=== PATIENT | male | born 1990 | race Caucasian/White ===

== ENCOUNTER 2016-06-11 13:35 | Inpatient (IN) | payer MEDICAID, OTHER ==
--- NOTE | 2016-06-11 13:42 | EDPHY ---
H & P - Medical/Surgical History Hx Asthma: No Hx Chronic Respiratory Disease: No Hx Diabetes: No Hx Cardiac Disease: No Hx Renal Disease: No Hx Cirrhosis: No Hx Alcoholism: No Hx HIV/AIDS: No Hx Splenectomy or Spleen Trauma: No Other PMH: schizophrenia - Social History Smoking Status: Former smoker Time Seen by Provider: 06/11/16 13:42 Constitutional: Initial Vital Signs Temperature (C) 37.6 C 06/11/16 13:45 Heart Rate 95 06/11/16 13:45 Respiratory Rate 20 06/11/16 13:45 Blood Pressure 140/88 H 06/11/16 13:45 O2 Sat (%) 91 L 06/11/16 13:45 O2 Delivery Mode Room Air Allergies/Adverse Reactions: No Known Allergies Allergy (Unverified 06/27/12 18:44) Home Medications: Medication Instructions Recorded ARIPiprazole [Abilify Maintena] 400 mg IM Q30D 06/12/16 QUEtiapine FUMARATE [Seroquel 100 100 mg PO HS 06/12/16 mg (*)] Medical Decision Making ED Course/Re-evaluation: CHIEF COMPLAINT: Psychiatric evaluation HISTORY OF PRESENT ILLNESS: 26-year-old gentleman who is accompanied by his parents. He is been having some psychiatric issues. He is paranoid. He has been having tangential thought patterns and speech. He is getting angry at things like the TV and TV programs. He is not making good sense. He apparently has been receiving his monthly psychiatric medicine. There is no evidence or drug alcohol abuse since he is monitored closely by his parents. REVIEW OF SYSTEMS: A 10 point review of systems was performed and is negative with the exception of the elements mentioned in the history of present illness. PHYSICAL EXAM: General Appearance: Alert, well hydrated, appropriate, and non-toxic appearing. Head: Atraumatic without scalp tenderness or obvious injury Eyes: Pupils equal, round, reactive to light and accommodation, EOMI, no trauma , no injection. Ears: Clear bilaterally, no perforation, normal landmarks Nose: Atraumatic, no rhinorrhea, clear. Throat: There is no erythema or exudates, no lesions, normal tonsils, mucus membranes moist. Neck: Supple, 2+ carotid upstroke, nontender, no lymphadenopathy. Respiratory: No retractions, no distress, no wheezes, and no accessory muscle use. Lungs are clear to auscultation bilaterally. Cardiovascular: Regular rate and rhythm, no murmurs, rubs, or gallops. Bilateral carotid, radial, dorsalis pedis, and posterior tibial pulses intact. Good capillary refill all extremities. Gastrointestinal: Abdomen is soft, nontender, non-distended, no masses, no rebound, no guarding, no peritoneal signs. Musculoskeletal: Normal active ROM of all extremities, atraumatic. Neurological: Alert, appropriate, and interactive. The patient has normal DTRs and non-focal cranial nerves, motor, sensory, and cerebellar exam. Skin: No rashes, good turgor, no nodules on palpation. Past medical history: Psychiatric disorders Past surgical history: Noncontributory Family history: Noncontributory Social history: Lives at home with his parents, unemployed, uses tobacco, denies drug or alcohol use DIFFERENTIAL DIAGNOSIS: The differential diagnosis for the patient's depression included but was not limited to functional and major depression, situational depression, medication side effect, drugs, and alcohol abuse. MEDICAL DECISION MAKING: Patient is in no acute distress and is hemodynamically stable. We are awaiting psychiatric team's evaluation. Patient has known history of psychiatric disorders and is here for evaluation. Patient is significantly more tangential and disorganized with than usual. His parents and the psychiatric team believe that this patient needs further evaluation and placement. He is cooperative although he had a long discussion about obtaining blood from him. The patient is concerned that we will take all of his blood and I assured him we would only take a couple of tests to any seems to be compliant with that now. 1757: EPS evaluated patient and determined he will need admission. They will begin searching for placement. 2153: Patient care signed out to Dr. Alanis at shift change pending placement. ( Jose Wiggins) 2200 care assumed by me from Dr. Wiggins pending placement. 0700 patient signed out to Dr. White pending placement. No issues with this patient during my care overnight. (John Alanis) I assumed care of this patient at [address] Alanis. Patient required a dose of Ativan during the morning for agitation. I also pharmacy to do med reconciliation so the patient could be started on his regular antipsychotic meds. I was informed at 11 o'clock that the patient has been accepted Dr. Frey's service on . Transfer paperwork was signed. (Ritika White) - Data Points Laboratory Results: Laboratory Results 06/11/16 13:55 06/11/16 13:55 Medications Given: Discontinued Medications Benztropine Mesylate (Cogentin) 1 mg PO EDNOW ONE Stop: 06/11/16 18:32 Last Admin: 06/11/16 20:18 Dose: 1 mg Lorazepam (Ativan) 1 mg PO EDNOW ONE Stop: 06/12/16 07:36 Last Admin: 06/12/16 07:44 Dose: 1 mg Lorazepam (Ativan) 1 mg PO EDNOW ONE Stop: 06/12/16 12:19 Last Admin: 06/12/16 12:25 Dose: 1 mg Olanzapine (Olanzapine) 10 mg PO EDNOW ONE Stop: 06/12/16 05:01 Last Admin: 06/12/16 05:02 Dose: 10 mg Propranolol HCl (Inderal) 10 mg PO ONCE ONE Stop: 06/11/16 18:31 Last Admin: 06/11/16 18:57 Dose: 10 mg Propranolol HCl (Inderal) 10 mg PO EDNOW ONE Stop: 06/12/16 02:57 Last Admin: 06/12/16 02:58 Dose: 10 mg Quetiapine Fumarate (Seroquel) 100 mg PO ONCE ONE Stop: 06/11/16 18:32 Last Admin: 06/11/16 20:18 Dose: 100 mg Departure - Departure Disposition: [facility] IP Clinical Impression: Schizophrenia, disorganized Condition: Fair
[2016-06-11 14:19] LABS: % IMMATURE GRANULYOCYTES 0.3 % (0.0-1.1); ABSOLUTE IMMATURE GRANULOCYTES 0.03 10^3/uL (0.00-0.10); ADD DIFF? NO; ADD MORPH? NO; ADD SCAN? NO; ATYPICAL LYMPHOCYTE FLAG 0 (0-99); FRAGMENT RBC FLAG 0 (0-99); HEMATOCRIT 48.5 % (40.0-51.0); HEMOGLOBIN 16.2 g/dL (13.7-17.5); LEFT SHIFT FLG 0 (0-99); LIPEMIA HEMOLYSIS FLAG 80 (0-99); MEAN CELL HEMOGLOBIN 27.6 pg (27.9-34.1); MEAN CELL HEMOGLOBIN CONCENTR. 33.4 g/dL (32.4-36.7); MEAN CELL VOLUME 82.5 fL (81.5-99.8); MEAN PLATELET VOLUME 10.5 fL (8.7-11.7); PLATELET CLUMPS FLAG 0 (0-99); PLATELET COUNT 193 10^3/uL (150-400); RED BLOOD CELL COUNT 5.88 10^6/uL (4.40-6.38); RED CELL DISTRIBUTION WIDTH 13.8 % (11.5-15.2)
[2016-06-11 14:33] LABS: ANION GAP 15 mEq/L (8-16); CALCIUM 10.2 mg/dL (8.5-10.4); CARBON DIOXIDE 24 mEq/l (22-31); CHLORIDE 104 mEq/L (97-110); CREATININE 0.8 mg/dL (0.7-1.3); ETHANOL SERUM < 10 mg/dL (0-10); GLOMERULAR FILTRATION RATE > 60; GLUCOSE 91 mg/dL (70-100); POTASSIUM 4.2 mEq/L (3.5-5.2); SALICYLATE < 1.0 mg/dL (2.0-20.0); SODIUM 143 mEq/L (134-144)
[2016-06-11] MEDS ORDERED: PROPRANOLOL HCL 10 MG TAB PO ONE (18:30)
[2016-06-11] MEDS ORDERED: QUEtiapine FUMARATE 100 MG TAB PO ONE (18:31)
[2016-06-11] MEDS ORDERED: BENZTROPINE MESYLATE 1 MG TAB PO ONE (18:31)
[2016-06-12] MEDS ORDERED: PROPRANOLOL HCL 20 MG TAB ONE (02:43)
[2016-06-12] MEDS ORDERED: PROPRANOLOL HCL 10 MG TAB PO ONE (02:56)
[2016-06-12] MEDS ORDERED: OLANZapine DISINTEGR 10 MG TAB ONE (04:57)
[2016-06-12] MEDS ORDERED: OLANZapine 10 MG TAB PO ONE (05:00)
[2016-06-12] MEDS ORDERED: fentaNYL 100 MCG/2 ML INJ ONE (06:37)
[2016-06-12] MEDS ORDERED: LORazepam 1 MG TAB PO ONE ×2 (07:35→12:18)
--- NOTE | 2016-06-12 15:27 | BCON ---
[f rep st] BEHAVIORAL HEALTH CONSULTATION INTERNAL MEDICINE CONSULTATION. DATE OF CONSULTATION: 06/12/2016 REFERRING PHYSICIAN: Lucius Cooney MD REASON FOR CONSULTATION: Medical clearance for inpatient behavioral health stay. HISTORY OF PRESENT ILLNESS: Mr. Alejandro was brought to the emergency department accompanied by his parents with paranoia and tangential thought patterns and speech. Additionally he was getting angry at things like the television and television programs per the emergency department note. He was evaluated by the mental health team and admitted for further psychiatric care. Currently, he is without any medical complaints. PAST MEDICAL HISTORY: Schizophrenia. PAST SURGICAL HISTORY: He has not had any surgeries. MEDICATIONS: Per the emergency department note at home he was taking Abilify, Cogentin and Seroquel. ALLERGIES: There are no known drug allergies. SOCIAL HISTORY: He lives with his parents. He reports that he is a nonsmoker, though he has smoked in the past. He does not use drugs or alcohol. He is vague about his usual day-to-day activities. FAMILY HISTORY: Noncontributory. REVIEW OF SYSTEMS: A 10-point review of systems was conducted and was negative. PHYSICAL EXAMINATION: VITAL SIGNS: Blood pressure is 134/76, heart rate is 104 , oxygen saturation is 93% on room air, respiratory rate is 18. His weight is 74.6 kg for a body mass index of 25.8. GENERAL: This is a well-nourished, well -developed man, appears his chronologic age, cooperative, and in no acute distress. HEENT: Extraocular movements are intact. Mucous membranes are moist. Dentition is in good condition. NECK: Supple. HEART: There is a regular rate and rhythm with no murmurs, rubs, or gallops. He is tachycardic. LUNGS: Are clear to auscultation bilaterally. ABDOMEN: Soft, nontender, nondistended with normoactive bowel sounds. EXTREMITIES: There is no cyanosis , clubbing, or edema. NEUROLOGIC: He is alert. He would not fully respond to questions regarding orientation, so orientation could not be determined. He is quite stimulus bound and upon questioning he directs himself to objects within his reach and discusses those objects. Cranial nerves 2-12 are grossly intact. There is no focal weakness. Sensation is intact to light touch. Gait is within normal limits. LABORATORY STUDIES: Drawn in the emergency department: CBC revealed a slightly elevated white blood cell count of 11.81. There was no left shift. There was an elevation of absolute neutrophils and lymphocytes, likely of no clinical significance. Serum chemistry revealed normal renal function and electrolytes. Toxicology in the serum was negative for salicylates, acetaminophen or ethyl alcohol, and the urine was negative for any substances of abuse. ASSESSMENT AND RECOMMENDATIONS: 1. Mental health issues, pending further evaluation and management per Psychiatry and the mental health team. 2. Tachycardia of unclear etiology. This was fully evaluated on his prior stay including electrocardiogram and echocardiogram with no abnormalities noted. It may be due to a sedentary lifestyle, but he is not aware of the symptom and it does not seem to be causing any medical consequences. Advise monitoring of his heart rate and monitoring for any symptoms, especially any cardiac dysrhythmias. 3. I see no medical contraindications to the patient's continued stay on the inpatient behavioral health unit or to any psychiatric medications or procedures. Thank you very much for including me in the care of the patient and please do not hesitate to contact me or the hospitalist service should there be a need for further medical evaluation. /[id number]/MODL MTDD
[2016-06-12] MEDS ORDERED: MAG HYDROX/AL HYDROX/SIMETH 30 ML UDCUP PO PRN (16:18)
[2016-06-12] MEDS ORDERED: ACETAMINOPHEN 325 MG TAB PO PRN (16:18)
[2016-06-12] MEDS ORDERED: LORazepam 0.5 MG TAB PO PRN (16:18)
[2016-06-12] MEDS ORDERED: MAGNESIUM HYDROXIDE 30 ML UDCUP PO PRN (16:18)
[2016-06-12] MEDS ORDERED: NICOTINE POLACRILEX 2 MG GUM B PRN (16:18)
[2016-06-12] MEDS ORDERED: QUEtiapine FUMARATE 100 MG TAB PO PRN (16:19)
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
[2016-06-13] MEDS: OLANZapine DISINTEGR 10 MG TAB PO SCH ×2 (14:19→20:51)
[2016-06-13] MEDS: clonazePAM 0.5 MG TAB PO SCH (20:52)
[2016-06-14] MEDS: clonazePAM 0.5 MG TAB PO SCH ×2 (08:16→21:42)
[2016-06-14] MEDS: OLANZapine DISINTEGR 10 MG TAB PO SCH ×2 (08:16→21:42)
--- NOTE | 2016-06-14 11:11 | SOAPPROG ---
SOAP Progress Note Assessment/Plan: Assessment: 26yo with long hx of SZP admitted on M1 from outpt clinic in decompensated state , was labile, psychotic and gravely disabled. 06/14/16 18:28 met with mother today who was very concerned about son being in hospital with "no activities" on unit, and reports he's less communicative than prior to admission, although admits when he was talking more it was illogical. Shares hx of his being diagnosed with "Central Auditory Processing Disorder" when in 2nd grade, wonders that was an early indication of mental illness. By age 8 he was depressed and crying a lot. Started in treatment/on meds by age 13 for depression but with questions of underlying psychotic d/o. By 21yo pt was more odd and had first episode of psychosis. Has been on several meds since, often noncompliant, so preference has been for IM meds. Recently changed from Risp Consta (after 3 yrs, and seeming to lose effectiveness) to Invega for 3mo, and then Abibrenton Jeanna, receiving 2nd 400mg IM on 06/10 when he became hysterical, laughing/crying, "meltdown" at office around receiving his IM. When on Risp Consta, and relatively most stable, was driving self in for appts for Q2wk IM. Not driving x 6 mo now. Has PA who prescribes meds at [facility]. Thoughts by [facility] are now [facility] and also consider Clozapine. MSE: Pt with pacing, seems with akathisia. disheveled, decr eye contact. disheveled. fair eye contact, often staring in suspicious manner, affect restricted/guarded , with delayed response time to questions but often not with logical responses. Seems with less thought-blocking than yesterday, +disorg behavior/speech. did not endorse any AH/VH, no expression of SI/HI. I/J poor. Plan/Considerations: -Continue with Zyprexa 10mg bid and Klonopin 0.5mg bid for now. Consider adding Propranolol scheduled while med adjustments being made. -Mother does note pt was smoking up to 1ppd last summer. +tob can affect metabolism of antipsychotics, may have caused decr effectiveness of Risp. Need to check w/pharmacist -No subst use hx per mother, but did "fall in with the wrong crowd" in HS and alluded to his perhaps having used some. Does not seem to be an active issue, but unable to obtain history from patient himself. -Any history of brain imaging? -Was relatively stabilized on Risperdal and Klonopin for anxiety prior to last discharge in 2013. Klonopin added again now, may help with akathisia, although ideally would like to stabilize pt with an IM in which he is not experiencing such s/e. (pt doesn't identify pacing as a s/e however). -Received Abilify Maintenna 400mg IM for 2nd dose 06/10/16. Need to check t1/2 of Abilify Maintenna, likely too early to tell whether it is helpful, and clinically seems to need additional neuroleptic to stabilize his psychosis before determining it to be a treatment failure. Started po Zyprexa after admission, no complaints except felt tired this AM. Less appearing to respond to internal stimuli today. -Coordinate care with outpt providers, seems pt may have been put on [facility] list. Mother not happy about this, worries about pt, but may be best way to stabilize longer-term. -Could consider starting Clozapine while inpt, and given hx of med n/c, it does come in dissolvable tablets which could help. And pt may clinically improve to point of voluntary med compliance if less psychotic. Would need labs, EKG. -STC placed today. Objective: Vital Signs Temp Pulse Resp BP Pulse Ox 36.4 C 96 14 128/62 H 95 06/14/16 06:46 06/14/16 06:46 06/14/16 06:46 06/14/16 06:46 06/14/16 06:46 - Time Spent With Patient Time Spent With Patient: 25 min - Pending Discharge Pending Discharge Within 24 Hours: No Pending Discharge Within 48 Hours: No ICD10 Worksheet Patient Problems: Problems Problem Status Onset Schizophrenia, disorganized Acute Tachycardia Acute
[2016-06-15] MEDS: clonazePAM 0.5 MG TAB PO SCH ×2 (10:39→21:15)
[2016-06-15] MEDS: OLANZapine DISINTEGR 10 MG TAB PO SCH ×2 (10:39→21:13)
--- NOTE | 2016-06-15 15:17 | SOAPPROG ---
SOAP Progress Note Assessment/Plan: Assessment: Plan: 06/15/16 15:04 DAY 4 UPDATE: Pt presents as 26 yo SWM with known chronic h/o Schizophrenic Disorder.Has been refractory to many medications - most recently trials of depot Invega and depot Risperdal; pt reportedly has not been out of parents" home since 2012 other than for hospitalizations including stay on C! in 2013. Has again decompensated to level of acuity, brought to ED by parents with initial attempt to place him in [facility] where he is currently wait-listed with parental support for this. Since admission he has been behaviorally stable, compliant with meds, but with residual acutely disordered thought process. received depot Abilify 400 mg IM 06/10 TALLIER; currently continuing on Cogentin 1 mg hs, Propanolol 10 mg q4 prn x 4 qd, and Seroquel 100 mg hs ON EXAM: Pt presents as young adult male, mildly dishevelled, cooperative; flattened affect with pauses in speech c/w thought/blocking; very concrete and sparse verbal responses; is aware of pending referral possibility to [facility] ; aggress to conference call to mother in AM. ASSESSMENT/PLAN: residual psychotic acuity/ coomplete w/u with collateral input from parents and community treaters; no current change in meds; ? transfer to [facility] Objective: Vital Signs Temp Pulse Resp BP Pulse Ox 36.4 C 96 14 128/62 H 95 06/14/16 06:46 06/14/16 06:46 06/14/16 06:46 06/14/16 06:46 06/14/16 06:46 ICD10 Worksheet Patient Problems: Problems Problem Status Onset Schizophrenia, disorganized Acute Tachycardia Acute
[2016-06-16] MEDS: clonazePAM 0.5 MG TAB PO SCH ×2 (09:30→20:26)
[2016-06-16] MEDS: OLANZapine DISINTEGR 10 MG TAB PO SCH ×2 (09:30→20:26)
--- NOTE | 2016-06-16 14:38 | SOAPPROG ---
SOAP Progress Note Assessment/Plan: Assessment: Plan: 06/15/16 15:04 DAY 4 UPDATE: Pt presents as 26 yo SWM with known chronic h/o Schizophrenic Disorder.Has been refractory to many medications - most recently trials of depot Invega and depot Risperdal; pt reportedly has not been out of parents' home since 2012 other than for hospitalizations including stay on C! in 2013. Has again decompensated to level of acuity, brought to ED by parents with initial attempt to place him in [facility] where he is currently wait-listed with parental support for this. Since admission he has been behaviorally stable, compliant with meds, but with residual acutely disordered thought process. 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 ASSESSMENT/PLAN: residual psychotic acuity/ coomplete w/u with collateral input from parents and community treaters; no current change in meds; ? transfer to [facility] 06/16/16 DAY 5 UPDATE: Pt continues to maintain behavioral control, compliance with meds; remains isolated, attending groups for a few minutes and then leaving; psychotic disorganization remains prominent in observed thought process. ON EXAM: Pt engages and overtly thought blocked, articulates impoverished and concrete verbal content, is guarded but again gives me permissions to talk with or meet with his mother who will again be visiting later in the day. ASSESSMENT/PLAN: residual psychotic acuity but behaviorally stable/ call pending to pt's mother; Team liason reviewing records from [facility] and is contacting community Team today for collateral/ no change in meds; will update timing of possible transter to [facility] to assess rx plan for pt while he is here. Objective: Vital Signs Temp Pulse Resp BP Pulse Ox 36.4 C 96 14 128/62 H 95 06/14/16 06:46 06/14/16 06:46 06/14/16 06:46 06/14/16 06:46 06/14/16 06:46 ICD10 Worksheet Patient Problems: Problems Problem Status Onset Schizophrenia, disorganized Acute Tachycardia Acute
[2016-06-17] MEDS: OLANZapine DISINTEGR 10 MG TAB PO SCH ×2 (08:59→20:14)
[2016-06-17] MEDS: clonazePAM 0.5 MG TAB PO SCH ×2 (09:00→20:14)
--- NOTE | 2016-06-17 14:31 | SOAPPROG ---
SOAP Progress Note Assessment/Plan: Assessment: Plan: 06/15/16 15:04 DAY 4 UPDATE: Pt presents as 26 yo SWM with known chronic h/o Schizophrenic Disorder.Has been refractory to many medications - most recently trials of depot Invega and depot Risperdal; pt reportedly has not been out of parents' home since 2012 other than for hospitalizations including stay on C! in 2013. Has again decompensated to level of acuity, brought to ED by parents with initial attempt to place him in [facility] where he is currently wait-listed with parental support for this. Since admission he has been behaviorally stable, compliant with meds, but with residual acutely disordered thought process. 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 ASSESSMENT/PLAN: residual psychotic acuity/ coomplete w/u with collateral input from parents and community treaters; no current change in meds; ? transfer to [facility] 06/16/16 DAY 5 UPDATE: Pt continues to maintain behavioral control, compliance with meds; remains isolated, attending groups for a few minutes and then leaving; psychotic disorganization remains prominent in observed thought process. ON EXAM: Pt engages and overtly thought blocked, articulates impoverished and concrete verbal content, is guarded but again gives me permissions to talk with or meet with his mother who will again be visiting later in the day. ASSESSMENT/PLAN: residual psychotic acuity but behaviorally stable/ call pending to pt's mother; Team liason reviewing records from [facility] and is contacting community Team today for collateral/ no change in meds; will update timing of possible transter to [facility] to assess rx plan for pt while he is here. 06/17/16 DAY 6 UDATE: Intake from [facility] affirmed chronicity of syndromal course; she reported has responed for extended perios to Risperdal which then pooped out; refractory to depot Invega and has just begun with depot Abilify with second injection 06/10. She had seen some improvement in spontaneous speech 2 weeks after first injection. She also stated that pt's psychiatrist was the democrat wanting the SOILS ENGINEER evaulation and have pt wait-listed at [facility]. Mother thoughtful and understand my interest in optimally treating pt on C1 and unable to predict if/when the pt would transfer to [place]. PLan to f/u with [facility] and than recontact mother. ON EXAM: Objective: Vital Signs Temp Pulse Resp BP Pulse Ox 36.4 C 96 14 128/62 H 95 06/14/16 06:46 06/14/16 06:46 06/14/16 06:46 06/14/16 06:46 06/14/16 06:46 ICD10 Worksheet Patient Problems: Problems Problem Status Onset Schizophrenia, disorganized Acute Tachycardia Acute
--- NOTE | 2016-06-18 08:09 | SOAPPROG ---
SOAP Progress Note Assessment/Plan: Assessment: Plan: 06/15/16 15:04 DAY 4 UPDATE: Pt presents as 26 yo SWM with known chronic h/o Schizophrenic Disorder.Has been refractory to many medications - most recently trials of depot Invega and depot Risperdal; pt reportedly has not been out of parents' home since 2012 other than for hospitalizations including stay on C! in 2013. Has again decompensated to level of acuity, brought to ED by parents with initial attempt to place him in [facility] where he is currently wait-listed with parental support for this. Since admission he has been behaviorally stable, compliant with meds, but with residual acutely disordered thought process. 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 ASSESSMENT/PLAN: residual psychotic acuity/ coomplete w/u with collateral input from parents and community treaters; no current change in meds; ? transfer to [facility] 06/16/16 DAY 5 UPDATE: Pt continues to maintain behavioral control, compliance with meds; remains isolated, attending groups for a few minutes and then leaving; psychotic disorganization remains prominent in observed thought process. ON EXAM: Pt engages and overtly thought blocked, articulates impoverished and concrete verbal content, is guarded but again gives me permissions to talk with or meet with his mother who will again be visiting later in the day. ASSESSMENT/PLAN: residual psychotic acuity but behaviorally stable/ call pending to pt's mother; Team liason reviewing records from [facility] and is contacting community Team today for collateral/ no change in meds; will update timing of possible transter to [facility] to assess rx plan for pt while he is here. 06/17/16 DAY 6 UDATE: [place] [facility] [place] Mother affirmed chronicity of syndromal course; she reported her son has responded for extended perios to Risperdal which then pooped out; refractory to depot Invega and has just begun with depot Abilify with second injection 06/10. She had seen some improvement in spontaneous speech 2 weeks after first injection. She also stated that pt's psychiatrist was the democrat wanting the RESEARCH LEADER evaluation and have pt wait-listed at [facility]. Mother thoughtful and understood my interest in optimally treating pt on C1 and unable to predict if/when the pt would transfer to [place]. PLan to f/u with [facility] and than recontact mother. ON EXAM: PT presents as calmer but does pace some and engage in brief verbal contact which remain extremely concrete but reality-focussed. No overt disorganization displayed but lagged response time suggestive of ongoing disorganization/probable blocking. Team reports pt continues in behavioral control and is relatively isolative. ASSESSMENT/PLAN: slow progress as pt adapts to the unit community; psychotic thought process incrementally less/ no change in current meds; will contact communityTe clinician in AM for collateral and treatment planning input; care plan will continue to reinforce social engagement 06/18/16 08:02 Objective: Vital Signs Temp Pulse Resp BP Pulse Ox 36.4 C 96 14 128/62 H 95 06/14/16 06:46 06/14/16 06:46 06/14/16 06:46 06/14/16 06:46 06/14/16 06:46 ICD10 Worksheet Patient Problems: Problems Problem Status Onset Schizophrenia, disorganized Acute Tachycardia Acute
[2016-06-18] MEDS: OLANZapine DISINTEGR 10 MG TAB PO SCH ×2 (09:03→21:09)
[2016-06-18] MEDS: clonazePAM 0.5 MG TAB PO SCH ×2 (09:03→21:09)
--- NOTE | 2016-06-18 12:23 | SOAPPROG ---
SOAP Progress Note Assessment/Plan: Assessment: Plan: 06/15/16 15:04 DAY 4 UPDATE: Pt presents as 26 yo SWM with known chronic h/o Schizophrenic Disorder.Has been refractory to many medications - most recently trials of depot Invega and depot Risperdal; pt reportedly has not been out of parents' home since 2012 other than for hospitalizations including stay on C! in 2013. Has again decompensated to level of acuity, brought to ED by parents with initial attempt to place him in [facility] where he is currently wait-listed with parental support for this. Since admission he has been behaviorally stable, compliant with meds, but with residual acutely disordered thought process. 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 ASSESSMENT/PLAN: residual psychotic acuity/ coomplete w/u with collateral input from parents and community treaters; no current change in meds; ? transfer to [facility] 06/16/16 DAY 5 UPDATE: Pt continues to maintain behavioral control, compliance with meds; remains isolated, attending groups for a few minutes and then leaving; psychotic disorganization remains prominent in observed thought process. ON EXAM: Pt engages and overtly thought blocked, articulates impoverished and concrete verbal content, is guarded but again gives me permissions to talk with or meet with his mother who will again be visiting later in the day. ASSESSMENT/PLAN: residual psychotic acuity but behaviorally stable/ call pending to pt's mother; Team liason reviewing records from [facility] and is contacting community Team today for collateral/ no change in meds; will update timing of possible transter to [facility] to assess rx plan for pt while he is here. 06/17/16 DAY 6 UDATE: Intake from [facility] [place] Mother affirmed chronicity of syndromal course; she reported her son has responded for extended perios to Risperdal which then pooped out; refractory to depot Invega and has just begun with depot Abilify with second injection 06/10. She had seen some improvement in spontaneous speech 2 weeks after first injection. She also stated that pt's psychiatrist was the libertarian wanting the CELL ATTENDANT evaluation and have pt wait-listed at [facility]. Mother thoughtful and understood my interest in optimally treating pt on C1 and unable to predict if/when the pt would transfer to [place]. PLan to f/u with [facility] and than recontact mother. ON EXAM: PT presents as calmer but does pace some and engage in brief verbal contact which remain extremely concrete but reality-focussed. No overt disorganization displayed but lagged response time suggestive of ongoing disorganization/probable blocking. Team reports pt continues in behavioral control and is relatively isolative. ASSESSMENT/PLAN: slow progress as pt adapts to the unit community; psychotic thought process incrementally less/ no change in current meds; will contact [facility] clinician in AM for collateral and treatment planning input; care plan will continue to reinforce social engagement 06/18/16 12:06 DAY 7 UPDATE: Team reports pt is behaviorally stable, residual but less pacing; isolative but out of room more and still sampling groups. Spoke with CELL ATTENDANT Sultana who follows pt with [facility] including prescribed meds. She and agreed that pt appears to be having initial response to depot Abilify with consideration of increasing dosing and/or shortening interval to bolter effect. Pt has had long h/o noncompliance with oral medications and community programming. ON EXAM: Pt presents as calm, cooperative, conversant; more verbal and better organized in responding to ?'s - able to describe daily routine at home where le lives with parents who are at work during the day and he is home alone. Denies and side effects on Abilify since last injection 06/10. ASSESSMENT/PLAN: slow-paced improvement with residual psychosis/ will consider increasing effective dosings on depot Abilify; reviewed cafre plan changes with Nursing to reinforce social engagement; will discuss case again in few days with P Team Objective: Vital Signs Temp Pulse Resp BP Pulse Ox 36.4 C 96 14 128/62 H 95 06/14/16 06:46 06/14/16 06:46 06/14/16 06:46 06/14/16 06:46 06/14/16 06:46 ICD10 Worksheet Patient Problems: Problems Problem Status Onset Schizophrenia, disorganized Acute Tachycardia Acute
[2016-06-18 15:11] VITALS: RESP 12
[2016-06-19] MEDS: clonazePAM 0.5 MG TAB PO SCH (08:30)
[2016-06-19] MEDS: OLANZapine DISINTEGR 10 MG TAB PO SCH (08:30)
--- NOTE | 2016-06-19 10:58 | SOAPPROG ---
SOAP Progress Note Assessment/Plan: Assessment: Plan: 06/15/16 15:04 DAY 4 UPDATE: Pt presents as 26 yo SWM with known chronic h/o Schizophrenic Disorder.Has been refractory to many medications - most recently trials of depot Invega and depot Risperdal; pt reportedly has not been out of parents' home since 2012 other than for hospitalizations including stay on C! in 2013. Has again decompensated to level of acuity, brought to ED by parents with initial attempt to place him in [facility] where he is currently wait-listed with parental support for this. Since admission he has been behaviorally stable, compliant with meds, but with residual acutely disordered thought process. 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 ASSESSMENT/PLAN: residual psychotic acuity/ coomplete w/u with collateral input from parents and community treaters; no current change in meds; ? transfer to [facility] 06/16/16 DAY 5 UPDATE: Pt continues to maintain behavioral control, compliance with meds; remains isolated, attending groups for a few minutes and then leaving; psychotic disorganization remains prominent in observed thought process. ON EXAM: Pt engages and overtly thought blocked, articulates impoverished and concrete verbal content, is guarded but again gives me permissions to talk with or meet with his mother who will again be visiting later in the day. ASSESSMENT/PLAN: residual psychotic acuity but behaviorally stable/ call pending to pt's mother; Team liason reviewing records from [facility] and is contacting community Team today for collateral/ no change in meds; will update timing of possible transter to [facility] to assess rx plan for pt while he is here. 06/17/16 DAY 6 UDATE: [place] [facility] [place] Mother affirmed chronicity of syndromal course; she reported her son has responded for extended perios to Risperdal which then pooped out; refractory to depot Invega and has just begun with depot Abilify with second injection 06/10. She had seen some improvement in spontaneous speech 2 weeks after first injection. She also stated that pt's psychiatrist was the constitution party wanting the BOTTOM STEEP TENDER evaluation and have pt wait-listed at [facility]. Mother thoughtful and understood my interest in optimally treating pt on C1 and unable to predict if/when the pt would transfer to [place]. PLan to f/u with [facility] and than recontact mother. ON EXAM: PT presents as calmer but does pace some and engage in brief verbal contact which remain extremely concrete but reality-focussed. No overt disorganization displayed but lagged response time suggestive of ongoing disorganization/probable blocking. Team reports pt continues in behavioral control and is relatively isolative. ASSESSMENT/PLAN: slow progress as pt adapts to the unit community; psychotic thought process incrementally less/ no change in current meds; will contact [facility] clinician in AM for collateral and treatment planning input; care plan will continue to reinforce social engagement 06/18/16 12:06 DAY 7 UPDATE: Team reports pt is behaviorally stable, residual but less pacing; isolative but out of room more and still sampling groups. Spoke with BOTTOM STEEP TENDER Sultana who follows pt with [facility] including prescribed meds. She and agreed that pt appears to be having initial response to depot Abilify with consideration of increasing dosing and/or shortening interval to bolter effect. Pt has had long h/o noncompliance with oral medications and community programming. ON EXAM: Pt presents as calm, cooperative, conversant; more verbal and better organized in responding to ?'s - able to describe daily routine at home where le lives with parents who are at work during the day and he is home alone. Denies and side effects on Abilify since last injection 06/10. ASSESSMENT/PLAN: slow-paced improvement with residual psychosis/ will consider increasing effective dosings on depot Abilify; reviewed care plan changes with Nursing to reinforce social engagement; will discuss case again in few days with P Team 06/19/16 DAY 8 UPDATE: Pt has been complying with stand po meds including Zydis/Zyprexa 10 mg bid and Klonopin 0.5 mg bid; these were prescribed on admission and his compliance has been good Nursing again affirmed today. His improvement is undoubtedly a function of the po meds added to a therapeutic effect of the depot Abilify which begain to emerge 2 weeks after his initial injection about 3 weeks BLASTING HELPER. Current slow-paced progress continues. ON EXAM: Pt able to sit thru session with less LE restlessness; again with nonpsychotic concrete verbal responsiveness - impoverished content but appropiate to my questions; reinforced his staying groups and "mixing" more with people out of his room as preparation to engage in treatment programming after DC ASSESSMENT/PLAN: continues to clear psychotic acuity and is complying with po meds as referenced/ no change in current meds; CP reinforcement to stay in groups and increase time out of room; will reasess post weekend for readiness for DC planning and timetable - will update with [facility] and [facility] at that time and also review with Dr. Hartmann a/w Medicaid Objective: Vital Signs Temp Pulse Resp BP Pulse Ox 36.5 C 71 12 143/65 H 94 06/18/16 15:09 06/18/16 15:09 06/18/16 15:09 06/18/16 15:09 06/18/16 15:09 ICD10 Worksheet Patient Problems: Problems Problem Status Onset Schizophrenia, disorganized Acute Tachycardia Acute
--- NOTE | 2016-06-19 13:39 | CPEKG ---
Heart Rate: 82 RR Interval: 732 P-R Interval: 144 QRSD Interval: 82 QT Interval: 348 QTC Interval: 407 P Romney: 58 QRS Romney: 29 T Wave Romney: 46 EKG Severity - NORMAL ECG - EKG Impression: SINUS RHYTHM Electronically Signed By: Juan Alcantara 19-Jun-2016 16:10:56
--- NOTE | 2016-06-19 14:19 | SOAPPROG ---
SOAP Progress Note Assessment/Plan: Assessment: Plan: 06/15/16 15:04 DAY 4 UPDATE: Pt presents as 26 yo SWM with known chronic h/o Schizophrenic Disorder.Has been refractory to many medications - most recently trials of depot Invega and depot Risperdal; pt reportedly has not been out of parents' home since 2012 other than for hospitalizations including stay on C! in 2013. Has again decompensated to level of acuity, brought to ED by parents with initial attempt to place him in [facility] where he is currently wait-listed with parental support for this. Since admission he has been behaviorally stable, compliant with meds, but with residual acutely disordered thought process. 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 ASSESSMENT/PLAN: residual psychotic acuity/ coomplete w/u with collateral input from parents and community treaters; no current change in meds; ? transfer to [facility] 06/16/16 DAY 5 UPDATE: Pt continues to maintain behavioral control, compliance with meds; remains isolated, attending groups for a few minutes and then leaving; psychotic disorganization remains prominent in observed thought process. ON EXAM: Pt engages and overtly thought blocked, articulates impoverished and concrete verbal content, is guarded but again gives me permissions to talk with or meet with his mother who will again be visiting later in the day. ASSESSMENT/PLAN: residual psychotic acuity but behaviorally stable/ call pending to pt's mother; Team liason reviewing records from [facility] and is contacting community Team today for collateral/ no change in meds; will update timing of possible transter to [facility] to assess rx plan for pt while he is here. 06/17/16 DAY 6 UDATE: [place] [facility] [place] Mother affirmed chronicity of syndromal course; she reported her son has responded for extended perios to Risperdal which then pooped out; refractory to depot Invega and has just begun with depot Abilify with second injection 06/10. She had seen some improvement in spontaneous speech 2 weeks after first injection. She also stated that pt's psychiatrist was the republican wanting the STEM ROLLER OR CRUSHER OPERATOR evaluation and have pt wait-listed at [facility]. Mother thoughtful and understood my interest in optimally treating pt on C1 and unable to predict if/when the pt would transfer to [place]. PLan to f/u with [facility] and than recontact mother. ON EXAM: PT presents as calmer but does pace some and engage in brief verbal contact which remain extremely concrete but reality-focussed. No overt disorganization displayed but lagged response time suggestive of ongoing disorganization/probable blocking. Team reports pt continues in behavioral control and is relatively isolative. ASSESSMENT/PLAN: slow progress as pt adapts to the unit community; psychotic thought process incrementally less/ no change in current meds; will contact [facility] clinician in AM for collateral and treatment planning input; care plan will continue to reinforce social engagement 06/18/16 12:06 DAY 7 UPDATE: Team reports pt is behaviorally stable, residual but less pacing; isolative but out of room more and still sampling groups. Spoke with STEM ROLLER OR CRUSHER OPERATOR uSltana who follows pt with [facility] including prescribed meds. She and agreed that pt appears to be having initial response to depot Abilify with consideration of increasing dosing and/or shortening interval to bolter effect. Pt has had long h/o noncompliance with oral medications and community programming. ON EXAM: Pt presents as calm, cooperative, conversant; more verbal and better organized in responding to ?'s - able to describe daily routine at home where le lives with parents who are at work during the day and he is home alone. Denies and side effects on Abilify since last injection 06/10. ASSESSMENT/PLAN: slow-paced improvement with residual psychosis/ will consider increasing effective dosings on depot Abilify; reviewed care plan changes with Nursing to reinforce social engagement; will discuss case again in few days with P Team 06/19/16 DAY 8 UPDATE: Pt has been complying with stand po meds including Zydis/Zyprexa 10 mg bid and Klonopin 0.5 mg bid; these were prescribed on admission and his compliance has been good Nursing again affirmed today. 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 Current slow-paced progress continues. ON EXAM: Pt able to sit thru session with less LE restlessness; again with nonpsychotic concrete verbal responsiveness - impoverished content but appropiate to my questions; reinforced his staying groups and "mixing" more with people out of his room as preparation to engage in treatment programming after DC ASSESSMENT/PLAN: continues to clear psychotic acuity and is complying with po meds as referenced/ no change in current meds; CP reinforcement to stay in groups and increase time out of room; will reasess post weekend for readiness for DC planning and timetable - will update with [facility] and MOC at that time and also review with Dr. Hartmann a/w Medicaid 06/19/16 14:06 Brief Discharge Note UPDATE: Pt has been accepted for transfer to [facility] today in the late afternoon; [facility] treatment aware and has approved the transfer; MOC in process of being contacted by CC ON EXAM: Pt pesents as in c ontrol, calm, conversant. Explained upcoming transfer as bed had become available earlier today. Pt remained organized at his improved level, understood the transfer and why it was happening today; responded well to clarification and support. ASSESSMENT/PLAN: improving course sustained with lessening psychotic acuity DC today in transfer to [facility] DC meds as referenced below see Discharge Summary Objective: Vital Signs Temp Pulse Resp BP Pulse Ox 36.5 C 71 12 143/65 H 94 06/18/16 15:09 06/18/16 15:09 06/18/16 15:09 06/18/16 15:09 06/18/16 15:09 ICD10 Worksheet Patient Problems: Problems Problem Status Onset Schizophrenia, disorganized Acute Tachycardia Acute
[2016-06-19] MEDS ORDERED: ARIPIPRAZOLE (ABILIFY MAINTENA) 400 MG VIAL IM ONE (14:20)
[2016-06-19 16:34] VITALS: BP 130/66; PULSE 102; TEMP 98.2; O2SAT 95
--- NOTE | 2016-06-24 06:51 | SOAPPROG ---
SOAP Progress Note Assessment/Plan: Assessment: Plan: 06/15/16 15:04 DAY 4 UPDATE: Pt presents as 26 yo SWM with known chronic h/o Schizophrenic Disorder.Has been refractory to many medications - most recently trials of depot Invega and depot Risperdal; pt reportedly has not been out of parents' home since 2012 other than for hospitalizations including stay on C! in 2013. Has again decompensated to level of acuity, brought to ED by parents with initial attempt to place him in [facility] where he is currently wait-listed with parental support for this. Since admission he has been behaviorally stable, compliant with meds, but with residual acutely disordered thought process. 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 ASSESSMENT/PLAN: residual psychotic acuity/ coomplete w/u with collateral input from parents and community treaters; no current change in meds; ? transfer to [facility] 06/16/16 DAY 5 UPDATE: Pt continues to maintain behavioral control, compliance with meds; remains isolated, attending groups for a few minutes and then leaving; psychotic disorganization remains prominent in observed thought process. ON EXAM: Pt engages and overtly thought blocked, articulates impoverished and concrete verbal content, is guarded but again gives me permissions to talk with or meet with his mother who will again be visiting later in the day. ASSESSMENT/PLAN: residual psychotic acuity but behaviorally stable/ call pending to pt's mother; Team liason reviewing records from [facility] and is contacting community Team today for collateral/ no change in meds; will update timing of possible transter to [facility] to assess rx plan for pt while he is here. 06/17/16 DAY 6 UDATE: Intake [place] [facility] [place] Mother affirmed chronicity of syndromal course; she reported her son has responded for extended perios to Risperdal which then pooped out; refractory to depot Invega and has just begun with depot Abilify with second injection 06/10. She had seen some improvement in spontaneous speech 2 weeks after first injection. She also stated that pt's psychiatrist was the green party wanting the AOC DIRECTOR COMBAT OPERATIONS OFFICER evaluation and have pt wait-listed at [facility]. Mother thoughtful and understood my interest in optimally treating pt on C1 and unable to predict if/when the pt would transfer to [place]. PLan to f/u with [facility] and than recontact mother. ON EXAM: PT presents as calmer but does pace some and engage in brief verbal contact which remain extremely concrete but reality-focussed. No overt disorganization displayed but lagged response time suggestive of ongoing disorganization/probable blocking. Team reports pt continues in behavioral control and is relatively isolative. ASSESSMENT/PLAN: slow progress as pt adapts to the unit community; psychotic thought process incrementally less/ no change in current meds; will contact [facility] clinician in AM for collateral and treatment planning input; care plan will continue to reinforce social engagement 06/18/16 12:06 DAY 7 UPDATE: Team reports pt is behaviorally stable, residual but less pacing; isolative but out of room more and still sampling groups. Spoke with AOC DIRECTOR COMBAT OPERATIONS OFFICER Sultana who follows pt with [facility] including prescribed meds. She and agreed that pt appears to be having initial response to depot Abilify with consideration of increasing dosing and/or shortening interval to bolter effect. Pt has had long h/o noncompliance with oral medications and community programming. ON EXAM: Pt presents as calm, cooperative, conversant; more verbal and better organized in responding to ?'s - able to describe daily routine at home where le lives with parents who are at work during the day and he is home alone. Denies and side effects on Abilify since last injection 06/10. ASSESSMENT/PLAN: slow-paced improvement with residual psychosis/ will consider increasing effective dosings on depot Abilify; reviewed care plan changes with Nursing to reinforce social engagement; will discuss case again in few days with P Team 06/19/16 DAY 8 UPDATE: Pt has been complying with stand po meds including Zydis/Zyprexa 10 mg bid and Klonopin 0.5 mg bid; these were prescribed on admission and his compliance has been good Nursing again affirmed today. 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 Current slow-paced progress continues. ON EXAM: Pt able to sit thru session with less LE restlessness; again with nonpsychotic concrete verbal responsiveness - impoverished content but appropiate to my questions; reinforced his staying groups and "mixing" more with people out of his room as preparation to engage in treatment programming after DC ASSESSMENT/PLAN: continues to clear psychotic acuity and is complying with po meds as referenced/ no change in current meds; CP reinforcement to stay in groups and increase time out of room; will reasess post weekend for readiness for DC planning and timetable - will update with [facility] and MOC at that time and also review with Dr. Hartmann a/w Medicaid 06/19/16 14:06 Brief Discharge Note UPDATE: Pt has been accepted for transfer to [facility] today in the late afternoon; [facility] treatment aware and has approved the transfer; MOC in process of being contacted by CC ON EXAM: Pt pesents as in c ontrol, calm, conversant. Explained upcoming transfer as bed had become available earlier today. Pt remained organized at his improved level, understood the transfer and why it was happening today; responded well to clarification and support. ASSESSMENT/PLAN: improving course sustained with lessening psychotic acuity DC today in transfer to [facility] DC meds as referenced below see Discharge Summary Objective: Vital Signs Temp Pulse Resp BP Pulse Ox 36.8 C 102 H 12 130/66 H 95 06/19/16 16:33 06/19/16 16:33 06/19/16 16:33 06/19/16 16:33 06/19/16 16:33 ICD10 Worksheet Patient Problems: Problems Problem Status Onset Schizophrenia, disorganized Acute Tachycardia Acute
== END 2016-06-19 17:40 | DRG 885 ==
LOC: BBEH 06-12 13:05
PROVIDERS: ADMIT Psychiatry & Neurology Psychiatry; ATTEND Psychiatry & Neurology Psychiatry
DX: F20.9 Schizophrenia, unspecified (principal); R00.0 Tachycardia, unspecified; Z87.891 Personal history of nicotine dependence
CPT/HCPCS: 80305; G0480; J3010